=== PATIENT | female | born 1990 | race Caucasian/White ===

== ENCOUNTER → 2017-12-07 | Outpatient (CLI) | payer SELFPAY ==
--- NOTE | 2017-12-07 17:50 | Diagnostic Imaging Report ---
INDICATION: Pelvic pain. TIME OF EXAM: 3:26 PM FINDINGS: Transabdominal and transvaginal sonography was performed. The uterus measures 7.6 x 4.0 x 3.4 cm. Endometrium is 3 mm in thickness. No myometrial mass is detected. The right ovary measures 2.1 x 2.2 x 3.1 cm. There are small follicles in the right ovary. There is blood flow to the right ovary. The left ovary is obscured by bowel gas. No adnexal mass or free fluid is seen. IMPRESSION: Nonvisualized left ovary. The study is otherwise unremarkable. Dictated by: Dictated on workstation # [id number]
== END ==
LOC: RAD 15:09
PROVIDERS: ATTEND Nurse Practitioner
DX: R10.2 Pelvic and perineal pain (principal); Z87.42 Personal history of other diseases of the female genital tract
CPT/HCPCS: 76830; 76856

== ENCOUNTER → 2020-04-01 | Outpatient (CLI) | payer MEDICAID ==
--- NOTE | 2020-04-01 16:37 | Diagnostic Imaging Report ---
INDICATION: , unsure dates. There is an intrauterine gestational sac containing pole measuring 7.6 and is consistent with 13 weeks 5 days gestation. heart rate was recorded at 179 bpm. Placenta is developing posteriorly. No previa seen. Cervical length is 4.8 cm. No linette-gestational sac hemorrhage is detected. IMPRESSION: Single live IUP 13 weeks 5 days gestational age. Estimated date of confinement sonographically is 10/02/2020. Dictated by: Dictated on workstation # [id number]
== END ==
LOC: RAD 14:39
PROVIDERS: ATTEND Obstetrics & Gynecology
DX: Z34.91 Encounter for supervision of normal pregnancy, unspecified, first trimester (principal); Z3A.13 13 weeks gestation of pregnancy
CPT/HCPCS: 76801; 76817

== ENCOUNTER → 2020-05-22 | Outpatient (CLI) | payer MEDICAID ==
--- NOTE | 2020-05-23 11:21 | Diagnostic Imaging Report ---
INDICATION: survey. TECHNIQUE: Multiple real-time grayscale images were obtained over the gravid uterus. COMPARISON: 04/01/2020. FINDINGS: There is a single live fetus in a breech presentation. heart rate was recorded at 160 BPM. Placenta is posterior. No previa is identified. Amniotic fluid index is 12.8 cm. survey demonstrates kidneys, bladder, and stomach to be unremarkable. brain is unremarkable. There is a four-chamber heart. There is a three-vessel cord with normal cord insertion. spine is unremarkable. Biometrical measurements are as follows: Biparietal 4.93 cm, age 21 weeks 0 days. Head circumference 18.54 cm, age 21 weeks 0 days. Abdominal circumference 18.14 cm, age 23 weeks 0 days. Femur length 3.48 cm, age 21 weeks 0 days. Sonographic estimate age: 21 weeks 4 days. Sonographic estimated date of delivery: 09/28/20. Estimated Weight: 461 gm (+/- 67 gm). LMP percentile: 93%. heart rate: 160 beats per minute. number: 1 of 1. IMPRESSION: Single live IUP at 21 to 22 weeks gestational age, showing normal interval growth when compared with prior exam. No complicating features are detected. Dictated by: Dictated on workstation # [id number]
== END ==
LOC: RAD 14:31
PROVIDERS: ATTEND Obstetrics & Gynecology
DX: Z34.92 Encounter for supervision of normal pregnancy, unspecified, second trimester (principal); Z3A.21 21 weeks gestation of pregnancy
CPT/HCPCS: 76805

== ENCOUNTER 2020-09-08 22:51 | Inpatient (IN) | payer MEDICAID ==
[~2020-09-08] VITALS: Ht 172.7 cm; Wt 174.0 kg
--- NOTE | 2020-09-08 22:57 | NUR ---
DOMINGUEZ BYNUM presented to unit via W/C from ED, accompanied by it telecom technician & SO, with c/o leaking fluid & ctxs. DOMINGUEZ BYNUM gowned, voided, and to bed. EFHM and TOCO applied, VS taken. DOMINGUEZ BYNUM oriented to bed controls, call light, TV, heat, and A/C controls.
[2020-09-08 23:08] VITALS: BP 133/83
[2020-09-08] MEDS ORDERED: OXYTOCIN PRE-MIX DRIP 500 ML IV ONE (23:15)
[2020-09-08] MEDS ORDERED: D5 LR IV SOLUTION 1,000 ML IV ONE (23:15)
[2020-09-08] MEDS ORDERED: LIDOCAINE/EPI 2% 1:200,00 (XYLOCAINE) 10 ML VIAL ONE ×2 (23:33→23:39)
[2020-09-08] MEDS ORDERED: OXYTOCIN PRE-MIX DRIP 500 ML IV SCH (23:45)
[2020-09-08] MEDS ORDERED: D5 LR IV SOLUTION 1,000 ML IV SCH (23:45)
[2020-09-08 23:46] VITALS: BP 152/98
[2020-09-08] MEDS: LIDOCAINE/EPI 2% 1:200,00 (XYLOCAINE) 10 ML VIAL INJ PRN (23:53)
[2020-09-09] VITALS (15 sets, daily range): BP systolic 114–149; BP diastolic 67–85
[2020-09-09] MEDS ORDERED: BUTORPHANOL INJ 2 MG/ML (STADOL) VIAL ONE (00:16)
[2020-09-09] MEDS ORDERED: BUTORPHANOL INJ 2 MG/ML (STADOL) VIAL IV ONE (00:30)
--- NOTE | 2020-09-09 00:36 | History & Physical ---
History and Physical Date Seen by Provider: Sep 08, 2020 Time Seen by Provider: 11:45 This patient is a 29-year-old 2 para [address] Rodas who presented in advanced labor with spontaneous rupture membrane as well. She is 36+ weeks gestation. Her has been otherwise uncomplicated. Her GBS culture result was not available patient was admitted with anticipation for rapid delivery Allergies are none Medications are Zoloft and vitamins Medical social and surgical history is all per the antepartum record HEENT exam is normal Neck is supple no lymphadenopathy no thyromegaly Abdomen is gravid soft nontender nondistended Extremities show no clubbing or cyanosis. There is no Homans' sign. Pelvic exam shows the cervix on my arrival it was 10 cm dilated 100% effaced +3 to +4 station with vertex presentation and gross rupture monitor shows contractions every 3 to 4 minutes with a normal/category 1 heart rate pattern Assessment and plan labor with rupture membrane at 36+ weeks gestation with delivery forthcoming and no time for prophylactic antibiotic 36 weeks gestation with spontaneous labor and spontaneous rupture membranes Allergies and Home Medications Allergies Coded Allergies: No Known Allergies (Verified Allergy, Unknown, 10/21/06) Patient Home Medication List Home Medication List Reviewed: CR Cleary MD Sep 09, 2020 00:36
[2020-09-09] MEDS ORDERED: DOCU-143 PO (00:41)
[2020-09-09] MEDS ORDERED: OXYC1TAB87 PO (00:41)
[2020-09-09] MEDS ORDERED: IBUP-1780 PO (00:41)
--- NOTE | 2020-09-09 00:42 | Discharge Inst-Surgical ---
Discharge Inst-Surgical Depart Medication/Instructions New, Converted or Re-Newed RX: RX on Chart Consults/Follow Up Patient Instructions: As directed Orders & Referrals Follow Up Appt: Call to make follow up appt. for patient in [address] Rodas Activity Per routine post vaginal delivery instructions. Please call in RX to patient pharmacy. Diet as tolerated Patient may shower or tub bathe as desired. Activity Activity as Tolerated: No Diet Discharge Diet: No Restrictions CR BOND MD Sep 09, 2020 00:42
[2020-09-09 00:59] LABS: BASOPHILS % (AUTO) 0 % (0-10); EOSINOPHILS % (AUTO) 0 % (0-10); HEMATOCRIT 30 % (35-52); LYMPHOCYTES # (AUTO) 1.4 10^3/uL (1.0-4.0); LYMPHOCYTES % (AUTO) 10 % (12-44); MEAN CORPUSCULAR HEMOGLOBIN 24 pg (25-34); MEAN CORPUSCULAR HGB CONC 30 g/dL (32-36); MEAN CORPUSCULAR VOLUME 80 fL (80-99); MEAN PLATELET VOLUME 10.3 fL (9.0-12.2); MONOCYTES # (AUTO) 0.8 10^3/uL (0.0-1.0); MONOCYTES % (AUTO) 5 % (0-12); NEUTROPHILS # (AUTO) 12.6 10^3/uL (1.8-7.8); NEUTROPHILS % (AUTO) 84 % (42-75); PLATELET COUNT 241 10^3/uL (130-400)
[2020-09-09] MEDS ORDERED: BENZOCAINE/MENTHOL (DERMOPLAST) 60 ML CAN TP ONE (00:59)
[2020-09-09] MEDS ORDERED: WITCH HAZEL(TUCKS) 40 EA JAR ONE (01:43)
[2020-09-09] MEDS ORDERED: KETOROLAC 30 MG/ML VIAL ONE (01:43)
[2020-09-09] MEDS ORDERED: ONDANSETRON 4 MG/2 ML (SDV) Z0FRAN IVP PRN (01:45)
[2020-09-09] MEDS ORDERED: oxyCODONE/APAP 5/325MG (PERCOCET 5) TABLET PO PRN (01:45)
[2020-09-09] MEDS ORDERED: TETANUS,DIPTH,PERTUSS P/F (BOOSTRIX) 0.5 ML VIAL IM ONE (01:45)
[2020-09-09] MEDS ORDERED: BENZOCAINE/MENTHOL (DERMOPLAST) 60 ML CAN TP PRN (01:45)
[2020-09-09] MEDS ORDERED: OXYTOCIN PRE-MIX DRIP 500 ML IV SCH (01:45)
[2020-09-09] MEDS ORDERED: MEASLES,MUMPS,RUBELLA 1 EA INJ SC ONE (01:45)
[2020-09-09] MEDS: KETOROLAC 30 MG/ML VIAL IVP SCH ×2 (01:47→10:16)
[2020-09-09] MEDS: WITCH HAZEL(TUCKS) 40 EA JAR TOP PRN (01:48)
[2020-09-09] MEDS: IBUPROFEN 800 MG (MOTRIN) TAB PO SCH ×3 (01:54→20:22)
--- NOTE | 2020-09-09 02:11 | OPERATIVE REPORT ---
DATE OF SERVICE: DELIVERY NOTE The patient delivered by spontaneous vaginal delivery a viable female infant with Apgars of 8 and 9 at 1 and 5 minutes respectively, weight of 8 pounds, time of 12:12 and a cord blood pH of 7.24. The was delivered over an intact perineum under no analgesia. There was a single nuchal cord that was easily released. The delivery was completed atraumatically. The infant was bulb suctioned on delivery of the head and again on completion of delivery. Umbilical cord when near pulseless was doubly clamped, the father cut the cord, the baby was passed to mom's abdomen. Cord bloods were obtained. The placenta delivered spontaneously [place]. It was a large placenta that was normal with a 3-vessel cord. The cervix, vagina, rectum, and perineum were examined and found intact, except for a left periurethral abrasion, which was hemostatic and did not require any repair. The patient tolerated the delivery relatively well and remained in the LDR for recovery. Sponge and needle counts were correct on completion of delivery and the inspection. Blood loss was around 200 mL. The baby remained in the LDR with the mom. Job ID: [id number] DocumentID: [id number] Dictated Date: 09/09/2020 00:48:37 Senior Net Application Developer Date: 09/09/2020 02:10:06 Dictated By: CR BOND MD
--- NOTE | 2020-09-09 03:30 | NUR ---
Pt resting in bed, requesting to move to room. Pericare performed per this RN. Fundus firm, no excessive bleeding with massage. New pad, underwear, and gown in place. Pt assisted into wheelchair. To room at time with this RN, FOB, and infant at side. Oriented pt and s.o. to new room. Discussed packet. Pt assisted into bed. Getting ready to breastfeed infant. Denies any concerns at time.
--- NOTE | 2020-09-09 07:45 | NUR ---
here to see pt.
--- NOTE | 2020-09-09 07:51 | Progress Note ---
Standard Progress Note Progress Notes/Assess & Plan Date Seen by a Provider: Sep 09, 2020 Time Seen by a Provider: 07:49 Progress/Assessment & Plan This patient is without complaint. She is ambulating, voiding, tolerating oral intake well and has good pain control. Vital Signs Date Time Temp Pulse Resp B/P (MAP) Pulse Ox O2 Delivery O2 Flow Rate FiO2 09/09/20 05:00 37.2 114 18 122/68 (86) Room Air 09/09/20 03:30 36.9 88 18 149/83 (105) Room Air 09/09/20 03:00 82 18 136/77 (96) Room Air 09/09/20 02:30 86 18 133/80 (97) Room Air 09/09/20 02:00 37.0 86 18 123/73 (90) Room Air 09/09/20 01:30 79 18 144/78 (100) Room Air 09/09/20 01:15 86 18 134/85 (101) Room Air 09/09/20 01:00 37.1 82 18 142/80 (100) Room Air 09/09/20 00:45 96 18 138/81 (100) Room Air 09/09/20 00:30 36.9 100 18 148/67 (94) Room Air 09/09/20 00:15 37.0 121 18 144/69 (94) Room Air 09/09/20 00:00 97 18 132/82 (99) Room Air 09/08/20 23:46 37.3 111 18 152/98 (116) 100 Room Air 09/08/20 23:08 36.9 88 18 133/83 (100) 100 Room Air 09/08/20 23:08 36.9 88 18 100 Room Air I & O 09/09/20 07:00 Intake Total 1100 ml Balance 1100 ml Vital signs are stable. Patient is afebrile. Fundus is firm below the umbilicus and nontender. Extremities show no clubbing or cyanosis. There is no Homans' sign. Assessment and plan day #1 status post spontaneous vaginal labor just after midnight. Plan is for routine convalescent care CR BOND MD Sep 09, 2020 07:51
--- NOTE | 2020-09-09 10:15 | NUR ---
initial shift assessment completed, see interventions for further.
[2020-09-09] MEDS: DOCUSATE SODIUM 100 MG (COLACE) CAP PO SCH ×2 (10:17→20:26)
--- NOTE | 2020-09-09 19:19 | NUR ---
report given to next shift
[2020-09-10 00:55] VITALS: BP 128/78
[2020-09-10] MEDS: IBUPROFEN 800 MG (MOTRIN) TAB PO SCH ×4 (00:55→18:38)
[2020-09-10] MEDS: KETOROLAC 30 MG/ML VIAL IVP SCH (00:59)
--- NOTE | 2020-09-10 07:30 | NUR ---
DR. OBND HERE TO SEE PT.
[2020-09-10 08:15] VITALS: BP 127/60
--- NOTE | 2020-09-10 08:15 | NUR ---
A.M. ASSESSMENT COMPLETED. VSS. CARING FOR IN ROOM.
--- NOTE | 2020-09-10 08:30 | NUR ---
REFUSED MMR AND FLU.
[2020-09-10] MEDS: DOCUSATE SODIUM 100 MG (COLACE) CAP PO SCH ×2 (08:43→21:24)
--- NOTE | 2020-09-10 10:00 | NUR ---
RESTING IN BED. S.O. IN SHOWER.
[2020-09-10] MEDS: WITCH HAZEL(TUCKS) 40 EA JAR TOP PRN (10:07)
[2020-09-10 12:30] VITALS: BP 135/82
--- NOTE | 2020-09-10 13:00 | NUR ---
EATING STORK MEAL. REMAINS IN ROOM. S.O. AT BEDSIDE CARING FOR INFANT.
[2020-09-10 16:00] VITALS: BP 135/67
--- NOTE | 2020-09-10 17:13 | NUR ---
PERCOCET 5/325 2 TABS P.. FOR C/O ABD CRAMPING.
--- NOTE | 2020-09-10 18:38 | NUR ---
ROUTINE MOTRIN GIVEN. STATES PAIN DECREASED TO 2/10 AFTER PERCOCET.
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
--- NOTE | 2020-09-10 19:30 | NUR ---
POLICE HERE TO SEE PT. INSURANCE CLAIMS ADJUSTER NOTIFIED OF NEED FOR HER TO COME TO UNIT. STORY RECOUNTED TO STITCHDOWN THREAD LASTER TOLD TO THIS RN BY FOB.
[2020-09-10 20:35] VITALS: BP 137/88
[2020-09-11] MEDS: IBUPROFEN 800 MG (MOTRIN) TAB PO SCH ×4 (00:04→17:50)
--- NOTE | 2020-09-11 00:15 | NUR ---
Pt finished baby. Baby back to [facility]. VS taken. Norma care and vpads changed. pt tolerated well. fundus firm. Moderate amount of bleeding noted. Addendum: 09/11/20 at 0039 by BARBARA WHIPPLE RN wrong pt
[2020-09-11 04:45] VITALS: BP 142/65
[2020-09-11 09:00] VITALS: BP 131/78
[2020-09-11] MEDS: DOCUSATE SODIUM 100 MG (COLACE) CAP PO SCH (09:35)
[2020-09-11 12:00] VITALS: BP 138/71
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
--- NOTE | 2020-09-11 16:03 | Progress Note ---
Standard Progress Note Progress Notes/Assess & Plan Date Seen by a Provider: Sep 11, 2020 Time Seen by a Provider: 16:01 Progress/Assessment & Plan This patient is without complaint. She is ambulating, voiding, tolerating oral intake well and has good pain control. Vital Signs Date Time Temp Pulse Resp B/P (MAP) Pulse Ox O2 Delivery O2 Flow Rate FiO2 09/09/20 05:00 37.2 114 18 122/68 (86) Room Air 09/09/20 03:30 36.9 88 18 149/83 (105) Room Air 09/09/20 03:00 82 18 136/77 (96) Room Air 09/09/20 02:30 86 18 133/80 (97) Room Air 09/09/20 02:00 37.0 86 18 123/73 (90) Room Air 09/09/20 01:30 79 18 144/78 (100) Room Air 09/09/20 01:15 86 18 134/85 (101) Room Air 09/09/20 01:00 37.1 82 18 142/80 (100) Room Air 09/09/20 00:45 96 18 138/81 (100) Room Air 09/09/20 00:30 36.9 100 18 148/67 (94) Room Air 09/09/20 00:15 37.0 121 18 144/69 (94) Room Air 09/09/20 00:00 97 18 132/82 (99) Room Air 09/08/20 23:46 37.3 111 18 152/98 (116) 100 Room Air 09/08/20 23:08 36.9 88 18 133/83 (100) 100 Room Air 09/08/20 23:08 36.9 88 18 100 Room Air I & O 09/09/20 07:00 Intake Total 1100 ml Balance 1100 ml Vital signs are stable. Patient is afebrile. Fundus is firm below the umbilicus and nontender. Extremities show no clubbing or cyanosis. There is no Homans' sign. Assessment and plan day #1 status post spontaneous vaginal labor just after midnight. Plan is for routine convalescent care September 11, 2020 This patient is without she is ambulating, voiding, tolerating oral intake well and has good pain control. Vital Signs Date Time Temp Pulse Resp B/P (MAP) Pulse Ox O2 Delivery O2 Flow Rate FiO2 09/11/20 12:00 37.1 84 18 138/71 (93) 96 Room Air 09/11/20 09:00 36.7 81 18 131/78 (95) 98 Room Air 09/11/20 04:45 36.8 80 18 142/65 (90) 98 Room Air 09/10/20 20:35 36.2 102 18 137/88 (104) 98 Room Air Vital signs are stable. Patient is afebrile. Fundus is firm below the umbilicus and nontender. Extremities show no clubbing cyanosis. There is no Homans' sign. Assessment and plan day #2 post vaginal delivery doing well plan is for discharge home or to remain if baby is not released Final Diagnosis 36-week vaginal delivery CR BOND MD Sep 11, 2020 16:03
--- NOTE | 2020-09-11 16:08 | Discharge Summary ---
Discharge Summary This patient is a 29-year-old 2 now para [address] Rodas who was admitted just before midnight on September 08, 2020. Patient was at advanced labor at 9 cm already on admission she delivered fairly properly delivering at 0012 on the morning show host of September 09, 2020. Through the day on September 09 the patient was stable and recovered uneventfully. On September 10, 2020 patient was without complaint. She was ambulating, voiding, tolerating oral intake well and had good pain control. Now on September 11, 2020 patient is ambulating, voiding, tolerating oral intake well and is ready for discharge home. Her baby may not be discharged home because of bilirubin or other issues if not the patient will recommend Principal diagnosis this hospitalization is vaginal delivery at 36 weeks gestation secondary diagnoses include , P PROM Operations and procedures include monitoring IV fluid and spontaneous vaginal delivery Patient was given appropriate discharge instructions verbally and in writing and a copy of those placed in chart. Discharge medications are Percocet Motrin and Colace 36-week spontaneous vaginal delivery Clinical Quality Measures DVT/VTE Risk/Contraindication: Risk Factor Score Per Nursin RFS Level Per Nursing on Admit: 1=Low/No VTE PPX CR BOND MD Sep 11, 2020 16:08
--- NOTE | 2020-09-11 16:27 | NUR ---
DR. BOND HERE TO SEE PT. PLAN TO GO TO ROOMING -IN STATUS R/T HAVING TO STAY.
[2020-09-11 17:30] VITALS: BP 134/88
--- NOTE | 2020-09-11 18:00 | NUR ---
PT VERBALIZED THE POSSIBILITY OF NEEDING TO GO HOME TO STAY WITH 13 YR OLD SON. STATES SHE WILL SEE WHAT THE SAYS TOMORROW ABOUT THE BABY'S LENGTH OF STAY.
[2020-09-11 18:30] VITALS: BP 134/88
--- NOTE | 2020-09-11 18:30 | NUR ---
DISCHARGE INSTRUCTIONS REVIEWED WITH PT WITH COPY GIVEN. STATES UNDERSTANDING OF ALL INSTRUCTIONS AND NEED TO F/U SCHEDULED AND NEEDED. DISMISSED FROM WS TO ROOMING-IN MOM R/T HAVING TO REMAIN A PT. PT'S MOM DROPPING OFF MEDICATIONS AT THE ED DOOR.
== END 2020-09-11 18:30 | disposition home or self-care (01) | DRG 807 ==
LOC: WSo 22:51 → LDRP 22:52 → WSo 23:16 → LDRP 09-09 03:30
PROVIDERS: ADMIT Obstetrics & Gynecology; ATTEND Obstetrics & Gynecology
PROC: 10E0XZZ Delivery of Products of Conception, External Approach (ICD-10-PCS; principal; 2020-09-08)
DX: O60.14X0 Preterm labor third trimester with preterm delivery third trimester, not applicable or unspecified (principal); Z37.0 Single live birth; Z3A.36 36 weeks gestation of pregnancy; O69.81X0 Labor and delivery complicated by cord around neck, without compression, not applicable or unspecified; Z20.828 Contact with and (suspected) exposure to other viral communicable diseases
CPT/HCPCS: 36415; 85025; 86850; 86900; 86901; 87635; 88307; 99212